=== PATIENT | male | born 1990 | race Caucasian/White ===

== ENCOUNTER 2018-06-06 22:03 | Emergency (ER) | payer OTHER ==
[~2018-06-06] VITALS: Ht 172.7 cm; Wt 59.0 kg
[2018-06-06] MEDS ORDERED: ONDANSETRON ODT 4 MG TAB.RAPDIS SL ONE (23:00)
[2018-06-06] MEDS ORDERED: AZITHROMYCIN 250 MG TABLET PO ONE (23:00)
[2018-06-06] MEDS ORDERED: CEFTRIAXONE 500 MG VIAL IM ONE (23:00)
[2018-06-06] MEDS ORDERED: AZITHROMYCIN 250 MG TABLET ONE (23:01)
[2018-06-06] MEDS ORDERED: ONDANSETRON ODT 4 MG TAB.RAPDIS ONE (23:01)
[2018-06-06] MEDS ORDERED: CEFTRIAXONE 500 MG VIAL ONE (23:02)
[2018-06-06] MEDS ORDERED: LIDOCAINE HCL 1% 20 ML VIAL ONE (23:02)
--- NOTE | 2018-06-06 23:27 | NUR ---
Patient discharged to home in stable conditon. Written and verbal after care instructions given. Patient verbalizes understanding of instructions.
[2018-06-07 00:14] LABS: *BILIRUBIN,URIN NEGATIVE (NEGATIVE); *BLOOD, URINE NEGATIVE (NEGATIVE); *CLARITY,URINE CLEAR (CLEAR); *COLOR,URINE YELLOW (YELLOW); *KETONES,URINE NEGATIVE (NEGATIVE); LEUKOCYTE ESTERASE ,URINE NEGATIVE (NEGATIVE); NITRITE, URINE NEGATIVE (NEGATIVE); UGLUCOSE NEGATIVE (NEGATIVE)
[2018-06-07 00:22] LABS: BACTERIA,URINE NONE SEEN /HPF (NONE SEEN); RBC,URINE 0-3 /HPF (0-3); SQUAMOUS EPITHELIAL CELL,UR NONE SEEN /HPF (NONE SEEN); WBC,URINE 0-3 /HPF (0-3)
[2018-06-07 01:34] VITALS: BP 138/72
== END 2018-06-07 01:35 | disposition home or self-care (01) ==
LOC: ER 22:05
DX: R30.0 Dysuria (principal); Z88.2 Allergy status to sulfonamides; Z88.8 Allergy status to other drugs, medicaments and biological substances
CPT/HCPCS: 81001; 96372; 99283; J0696; J3490; A4663; Q0144; Q0162